=== PATIENT | male | born 1990 | race Caucasian/White ===

== ENCOUNTER 2019-07-04 14:02 | Emergency (ER) | payer SELFPAY ==
[2019-07-04 13:59] VITALS: BP 126/77; PULSE 102; RESP 24; TEMP 37.3; O2SAT 99
--- NOTE | 2019-07-04 14:20 | DI.CT_ITS ---
SYMPTOM/DIAGNOSIS: TRAUMA, MID THORACIC BACK PAIN. [facility] CT CHEST, ABDOMEN AND PELVIS: Post IV contrast exam was performed. CHEST CT: The heart and great vessels appear intact. There is no pneumothorax, pleural or pericardial effusion. There is a mild compression fracture of T-8 which is of indeterminate age. IMPRESSION: Mild T-8 compression fracture of indeterminate age ABDOMEN AND PELVIC CT: The liver, spleen, pancreas, kidneys and adrenals appear intact. There is no free air or free fluid. No bowel wall thickening or abnormal distension seen. The bladder and prostate appear intact. No spine or pelvic fractures are seen. IMPRESSION: Negative CT of the abdomen and pelvis.
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
--- NOTE | 2019-07-04 14:30 | DI.CT_ITS ---
SYMPTOM/DIAGNOSIS: TRAUMA, MID THORACIC BACK PAIN CT THORACIC SPINE: The exam was reconstructed from the chest CT. There is a slight compression of the anterior superior end plate of T-8. There are no acute fracture lines and the fracture is of indeterminate age. There is a slight declivity of the superior end plate of T-11 and T-12 which appear old. No rib fractures are identified. IMPRESSION: Compression fracture of the anterior superior end plate of T-8, of indeterminate age.
[2019-07-04 14:31] LABS: HCT 39.7 % (40.0-50.0); HGB 14.4 g/dL (13.5-17.5); Mean Corp. HGB Concentration 36.3 g/dL (32.0-36.0); Mean Corpuscular Hemoglobin 31.6 pg (27.0-33.0); Mean Corpuscular Volume 87.3 fL (80-95); Mean Platelet Volume 8.8 fL (8.0-11.0); Platelet Count 447 x1000/uL (130-400); RBC 4.55 m/cumm (4.50-6.00); RBC Distribution Width 12.8 % (11.8-14.1); White Blood Cell Count 10.24 k/cumm (4.4-10.8)
[2019-07-04] MEDS: Lidocaine 5% Patch 1 PATCH TP (14:31)
[2019-07-04] MEDS: Omnipaque 350 MG/ML 100 ML BTL IJ (14:51)
[2019-07-04 14:52] LABS: ALT 41 U/L (16-63); AST 28 U/L (15-37); Albumin 4.3 g/dL (3.4-5.0); Alkaline Phosphatase 70 U/L (46-116); Anion Gap 14.1 mmol/L (3-11); BUN 14 mg/dL (7-18); Bilirubin, Total 0.8 mg/dL (0.2-1.0); CO2 20.9 mmol/L (21.0-32.0); CREATININE 0.81 mg/dL (0.70-1.30); Calcium 8.8 mg/dL (8.5-10.1); Chloride 102 mmol/L (98-107); Glucose 129 mg/dL (70-100); Potassium 3.3 mmol/L (3.5-5.1); Sodium 137 mmol/L (136-145); Total Protein 7.1 g/dL (6.4-8.2)
[2019-07-04] MEDS: Normal Saline Flush 10 ML SYR IVP (14:52)
[2019-07-04] MEDS: Normal Saline 1,000 ML 1000 ML IV (15:46)
[2019-07-04] MEDS: Potassium Chloride 10 MEQ TABCR 20 MEQ PO (15:47)
--- NOTE | 2019-07-04 15:56 | DI.VRAD_ITS ---
EXAM: CT Chest With Contrast EXAM DATE/TIME: 07/04/2019 2:36 PM CLINICAL HISTORY: 29 years old, male; Other: Trauma, mid thoracic back pain TECHNIQUE: Imaging protocol: Computed tomography images of the chest with intravenous contrast. Radiation optimization: All CT scans at this facility use at least one of these dose optimization techniques: automated exposure control; mA and/or kV adjustment per patient size (includes targeted exams where dose is matched to clinical indication); or iterative reconstruction. COMPARISON: No relevant prior studies available. FINDINGS: Lungs: Unremarkable. No consolidation. No masses. Pleural space: Unremarkable. No pneumothorax. No pleural effusion. Heart: Unremarkable. No cardiomegaly. No pericardial effusion. Aorta: Unremarkable. No aortic aneurysm, dissection or evidence of injury. Lymph nodes: Unremarkable. No enlarged lymph nodes. Bones/joints: T8 mild vertebral body compression fracture without linear lucency to confirm acute fracture. No posterior bony protrusion. No paravertebral hematoma or fat stranding. Soft tissues: Tiny metallic densities/surgical clips in the right axilla. IMPRESSION: Age-indeterminate T8 mild vertebral body compression fracture. Please, correlate for focal pain. EXAM: CT Abdomen and Pelvis With Contrast EXAM DATE/TIME: 07/04/2019 2:36 PM CLINICAL HISTORY: 29 years old, male; Other: Trauma, mid thoracic back pain TECHNIQUE: Imaging protocol: Computed tomography images of the abdomen and pelvis with intravenous contrast. Radiation optimization: All CT scans at this facility use at least one of these dose optimization techniques: automated exposure control; mA and/or kV adjustment per patient size (includes targeted exams where dose is matched to clinical indication); or iterative reconstruction. Contrast material: OMNIPAQUE 35; Contrast volume: 100 ml; Contrast route: IV; COMPARISON: No relevant prior studies available. FINDINGS: Liver: Unremarkable. No mass. Gallbladder and bile ducts: Unremarkable.No calcified stones. No ductal dilation. Pancreas: Unremarkable. No ductal dilation. Spleen: Unremarkable. No splenomegaly. Adrenals: Unremarkable. No mass. Kidneys and ureters: Unremarkable. No hydronephrosis. Stomach and bowel: Unremarkable. No obstruction. No mucosal thickening. Appendix: No evidence of appendicitis. Intraperitoneal space: Unremarkable. No free air. No fluid collection. Vasculature: Unremarkable. No abdominal aortic aneurysm, dissection or evidence of injury. Lymph nodes: Unremarkable. No enlarged lymph nodes. Bladder: Unremarkable as visualized. Reproductive: Unremarkable as visualized. Bones/joints: No acute fracture. No dislocation. Soft tissues: Unremarkable. IMPRESSION: Negative CT abdomen and pelvis exam. Dictated and Authenticated by: Christine Vaughn MD. Ordering:DEBRA Valverde MD
--- NOTE | 2019-07-04 16:07 | DI.VRAD_ITS ---
EXAM: CT Thoracic Spine Without Contrast EXAM DATE/TIME: 07/04/2019 2:25 PM CLINICAL HISTORY: 29 years old, male; Other: Trauma, thoracic back pain TECHNIQUE: Imaging protocol: Computed tomography images of the thoracic spine without contrast. Radiation optimization: All CT scans at this facility use at least one of these dose optimization techniques: automated exposure control; mA and/or kV adjustment per patient size (includes targeted exams where dose is matched to clinical indication); or iterative reconstruction. COMPARISON: No relevant prior studies available. FINDINGS: Vertebrae: Mild anterior compression deformity of the T8 vertebral body with question of thin band of dense compressed bone paralleling the superior endplate. No lucent fracture line or cortical disruption. No posterior bony protrusion. Discs/Spinal canal/Neural foramina: No spinal stenosis. Soft tissues: Unremarkable. IMPRESSION: Mild T8 vertebral body compression fracture, suspected to be acute in this patient with trauma and back pain. Please, correlate for focal pain at the T8 level. Dictated and Authenticated by: Christine Vaughn MD. Ordering:DEBRA Valverde MD
[2019-07-04] MEDS: Ibuprofen 600 MG TAB PO (16:28)
[2019-07-04] MEDS: Acetaminophen 325 MG TAB 650 MG PO (16:29)
[2019-07-04 16:37] VITALS: BP 128/67; PULSE 60; RESP 16; O2SAT 98
== END 2019-07-04 16:43 | disposition home or self-care (01) ==
PROVIDERS: Emergency Provider Student in an Organized Health Care Education/Training Program
DX: S22.060A Wedge compression fracture of T7-T8 vertebra, initial encounter for closed fracture (principal); R07.81 Pleurodynia; V43.02XA Car driver injured in collision with other type car in nontraffic accident, initial encounter; Y92.39 Other specified sports and athletic area as the place of occurrence of the external cause
CPT/HCPCS: 36415; 74177; 80053; 85027; 96360; 99285; 71260; 99284; J3490

== ENCOUNTER 2022-01-12 03:18 | Emergency (ER) | payer SELFPAY ==
[2022-01-12 03:30] VITALS: BP 144/79; PULSE 83; RESP 18; TEMP 36.8; O2SAT 98
[2022-01-12] MEDS: Benzocaine 20% Gel 30 GM JAR MM (03:35)
[2022-01-12] MEDS: Ketorolac 30 MG/ML VIAL IM (03:40)
--- NOTE | 2022-01-12 03:40 | ED.GENADUL_ITS ---
Discharge Plan Disposition Patient Disposition: HOME Condition: Good Discharge Details Clinical Impression: Pain, dental Primary Care Provider: [place],Local ED Provider: Benny Aguilar Home Meds and New Rx's Prescriptions: New penicillin V potassium 500 mg tablet 500 mg PO QID 10 Days Qty: 40 0RF Continued cyclobenzaprine 10 mg tablet 10 mg PO TID PRN (Reason: muscle spasm) Qty: 10 0RF Discharge Instructions Instructions: Toothache (ED) Additional Instructions: please take 800 mg of ibuprofen every 6 hours and 1000 mg of Tylenol every 6 hours to help with the inflammation and pain. These are the maximum doses. Please take the antibiotic as directed to help with the infection in your tooth. Please use the dental list that we have provided to contact the dentist for prompt follow-up and evaluation for tooth removal. If you notice any worsening of your symptoms, or any new symptoms such as difficulty swallowing, difficulty breathing, vomiting, diarrhea, fever, chills, shortness of breath, chest pain, numbness, weakness, or fainting , please return immediately to the emergency department for reevaluation. Please follow up with your primary care provider as soon as possible for reassessment and reevaluation. As always, it was a pleasure participating in your medical care today. Medical Decision Making This is a 31-year-old male with no significant past medical history presents today for evaluation of dental pain. Patient states that for the last 8 hours he has had mild right upper posterior dental pain. He admits to associated swelling in that area as well. He has taken ibuprofen but no Tylenol. He denies any fever chills or difficulty swallowing or drinking. He denies any trauma to the area. He does not have a dentist. No other complaints at this time. No other modifying factors. Physical exam demonstrate a small abscess in the right upper posterior molar space at the periapical space. No evidence of Ludewig's angina or airway compromise. Risk and benefits were discussed, patient agreed to procedure for abscess I&D. gauge needle was used to incise the area and a small amount of pus was removed without rotation or difficulty. Patient tolerated procedure well. We will give penicillin to go, as well as a prescription for home. We will give a dental sheet for close follow-up. Discussed red flags which to return. Patient at this time has refused dental block. We will give Toradol IM as well. I have extensively reviewed the treatment plan and discharge instructions with the patient. I have addressed all patient concerns at this time. The patient was made aware of what symptoms to monitor for that would warrant a return to the emergency department. Discussed the plan with the patient, they demonstrate verbal understanding and agreement with our assessment and plan at this time. The documentation in this chart was dictated using [employer] dictation software. Please excuse any dictation errors. HPI General Date/Time Provider Initiated Documentation: 01/12/22 03:31 . HPI Narrative: This is a 31-year-old male with no significant past medical history presents today for evaluation of dental pain. Patient states that for the last 8 hours he has had mild right upper posterior dental pain. He admits to associated swelling in that area as well. He has taken ibuprofen but no Tylenol. He denies any fever chills or difficulty swallowing or drinking. He denies any trauma to the area. He does not have a dentist. No other complaints at this time. No other modifying factors. Related Data Home Medications Medication Instructions Recorded Confirmed cyclobenzaprine 10 mg tablet 10 mg PO TID PRN #10 tab 08/23/21 08/23/21 penicillin V potassium 500 mg 500 mg PO QID 10 Days #40 tab 01/12/22 tablet Previous Rx's Medication Instructions Recorded cyclobenzaprine 10 mg tablet 10 mg PO TID PRN #10 tab 08/23/21 penicillin V potassium 500 mg 500 mg PO QID 10 Days #40 tab 01/12/22 tablet Allergies Allergy/AdvReac Type Severity Reaction Status Date / Time codeine Allergy Intermediate Itching Verified 08/23/21 14:25 General KEHINDE: 3 Review of Systems All systems reviewed & are unremarkable except as noted in HPI and below PFSH All Active Problems Pain, dental (Acute) Muscle spasm (Acute) Compression fracture of T8 vertebra (Acute) Social History Smoking/Tobacco Use Status: Current every day Smoking risk assessment performed?: Yes Alcohol Intake: current Alcohol Intake frequency: 0-2 drinks per day Drug use: Occasionally Substance use type: marijuana Do you feel safe at home: Yes Do you feel safe in your relationship?: Yes Exam Narrative Exam Narrative: 1.Const: Well-nourished, Well-developed, appearing stated age 2.Eyes: PERRL, no conjunctival injection, and symmetrical lids. 3.ENT: Atraumatic external nose and ears. Moist MM. Neck: Symmetric, trachea midline, No thyromegaly. Poor dentition throughout. Patient's right upper posterior molars demonstrate notable tooth decay, at the apical base of the second to most posterior upper right molar patient does demonstrate a small fluctuant abscess. 18-gauge needle was inserted and 1 cc of pus was removed. No complications otherwise. No evidence of Ludewig's angina. No evidence of airway compromise. 4.CVS: +S1/S2, No murmurs or gallops. Peripheral pulses 2+ and equal in all extremities. Brisk capillary refill in all extremities. 5.RESP: Unlabored respiratory effort. Clear to auscultation bilaterally. No wheezes rales or rhonchi 6.GI: Soft, Nontender/Nondistended, No hepatosplenomegaly. No guarding or rebound. 7.MSK: Normocephalic/Atraumatic, Extremities w/o deformity or ttp No cyanosis or clubbing, Normal movement of all extremities 8.Skin: Warm, Dry. No rashes or lesions. 9.Neuro: onsite case manager II-XII grossly intact. Sensation grossly intact, no focal neurologic deficits. 10.Psych: (AAO) x3. Appropriate mood and affect Procedures Other Description: Time out was taken to identify the correct patient, procedure, and site. Risks and benefits were discussed with the patient and consent was obtained. Direct pressure was held over the area prior to the procedure to reduce painful injection. The abscess was then incised with a 18-gauge needle and a moderate amount of pus and blood returned. The patient tolerated the procedure. There were no complications.
[2022-01-12] MEDS: Penicillin V POTASSIUM 500 MG TAB, 4 TABS/BTL PO (04:06)
== END 2022-01-12 04:17 | disposition home or self-care (01) ==
PROVIDERS: Emergency Provider Student in an Organized Health Care Education/Training Program
DX: K12.2 Cellulitis and abscess of mouth (principal)
CPT/HCPCS: 10160; J1885